=== PATIENT | male | born 2000 | race Hispanic/Latino ===

== ENCOUNTER 2021-03-25 09:43 | Emergency (ER) | payer OTHER, SELFPAY ==
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
[2021-03-25 09:49] VITALS: BP 144/71; PULSE 60; RESP 20; TEMP 36.7; O2SAT 100
--- NOTE | 2021-03-25 09:53 | PC.NURSE ---
C- Collar placed on pt while in triage
[2021-03-25 10:22] VITALS: BP 144/71; PULSE 60; RESP 20; TEMP 36.7; O2SAT 100
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
[2021-03-25 12:03] VITALS: BP 142/70; PULSE 61; RESP 20; O2SAT 100
== END 2021-03-25 12:05 | disposition home or self-care (01) ==
PROVIDERS: Emergency Provider Emergency Medicine
DX: S16.1XXA Strain of muscle, fascia and tendon at neck level, initial encounter (principal); K21.9 Gastro-esophageal reflux disease without esophagitis; F17.290 Nicotine dependence, other tobacco product, uncomplicated; V49.40XA Driver injured in collision with unspecified motor vehicles in traffic accident, initial encounter
CPT/HCPCS: 72125; 72131; 99284

== ENCOUNTER 2022-01-17 10:52 | Outpatient (CLI) | payer OTHER, SELFPAY ==
--- NOTE | ~2022-01-17 | XR_ITS ---
XR cervical spine 4-5V INDICATION: Cervicalgia TECHNIQUE: 5 views of the cervical spine. FINDINGS: No prior studies for comparison. The cervical spine is visualized to the cervicothoracic junction. There is no prevertebral soft tiss ue swelling, listhesis, or loss of vertebral body height. Intervertebral disc spaces are normal. Th e osseous central canal is patent. No displaced cervical spine fractures are identified. IMPRESSION: 1. No acute osseous abnormality of the cervical spine. Reviewed, dictated and finalized at location A.
== END 2022-01-17 10:53 | disposition home or self-care (01) ==
PROVIDERS: PCP Physician Assistant; Visit Provider Physician Assistant
DX: M54.2 Cervicalgia (principal)
CPT/HCPCS: 72050

== ENCOUNTER 2022-02-25 13:36 | Outpatient (CLI) | payer OTHER, SELFPAY ==
[2022-02-25 14:53] LABS: RSV RNA, RT-PCR Negative (Negative)
== END 2022-02-25 13:37 | disposition home or self-care (01) ==
LOC: ANHLAB 13:37
PROVIDERS: PCP Physician Assistant; Visit Provider Physician Assistant
DX: J02.9 Acute pharyngitis, unspecified (principal)
CPT/HCPCS: 87081; 87634; 87880